=== PATIENT | male | born 1970 | race Caucasian/White ===

== ENCOUNTER 2023-08-01 11:11 | Inpatient (IN) | payer OTHER ==
[2023-08-01] MEDS ORDERED: BISMUTH SUBSALICYLATE 262 MG/15 ML BTL PO PRN (12:35)
[2023-08-01] MEDS ORDERED: BENZOCAINE/MENTHOL (CHLORASEPTIC ) LOZENGE MM PRN (12:35)
[2023-08-01] MEDS ORDERED: ACETAMINOPHEN 325 MG TABLET (FP) PO PRN (12:35)
[2023-08-01] MEDS ORDERED: LOPERAMIDE HCL 2 MG CAPSULE PO PRN (12:35)
[2023-08-01] MEDS ORDERED: MAG HYDROX/AL HYDROX/SIMETH 30 ML UNIT-DOSE CUP PO PRN (12:35)
[2023-08-01] MEDS ORDERED: BENZONATATE 200 MG CAPSULE PO PRN (12:35)
[2023-08-01] MEDS ORDERED: LORazepam 1 MG TABLET PO PRN (12:35)
[2023-08-01] MEDS ORDERED: ONDANSETRON *ODT* 4 MG TABLET SL PRN (12:35)
[2023-08-01] MEDS ORDERED: IBUPROFEN 400 MG TABLET (FP) PO PRN (12:35)
[2023-08-01] MEDS ORDERED: guaiFENesin 600 MG TABLET.ER (FP) PO PRN (12:35)
[2023-08-01] MEDS ORDERED: NALOXONE HCL (KLOXXADO) 8 MG SPRAY NS PRN (12:35)
[2023-08-01] MEDS ORDERED: DICYCLOMINE HCL 10 MG CAPSULE PO PRN (12:35)
[2023-08-01] MEDS ORDERED: NALOXONE HCL 0.4 MG/ML VIAL IM PRN (12:35)
[2023-08-01] MEDS ORDERED: POLYETHYLENE GLYCOL (HEALTHYLAX) 3350 17 GM PACKET PO PRN (12:35)
[2023-08-01] MEDS ORDERED: MAGNESIUM HYDROX 2400MG/30ML ORAL SUSPENSION 30 ML CUP PO PRN (12:35)
[2023-08-01] MEDS ORDERED: LORazepam 2 MG TABLET ONE (14:18)
[2023-08-01] MEDS: LORazepam 2 MG TABLET PO ONE (14:20)
[2023-08-01] MEDS ORDERED: ALBUTEROL SO4 0.083% IH SOL 2.5 MG/3 ML VIAL.NEB. NEB PRN (14:43)
[2023-08-01] MEDS: METHOCARBAMOL 500 MG TABLET PO PRN (15:21)
[2023-08-01] MEDS: HYDROCHLOROTHIAZIDE 25 MG TABLET (FP) PO SCH (15:21)
[2023-08-01] MEDS: hydrOXYzine PAMOATE 25 MG CAPSULE (FP) PO PRN (15:22)
[2023-08-01] MEDS: PRENATAL VITAMINS W/ FOLIC ACID TABLET (FP) PO SCH (15:27)
[2023-08-01] MEDS: metFORMIN HCL 500 MG TABLET (FP) PO SCH (16:32)
[2023-08-01] MEDS ORDERED: INSULIN (NOVOLOG) ASPART 100 UNITS/ML 10ML VIAL ONE ×2 (17:30→21:50)
[2023-08-01] MEDS: LORazepam 2 MG TABLET PO SCH (17:32)
[2023-08-01] MEDS: INSULIN ASPART SLIDING SCALE (NOVOLOG) 1 VIAL SQ SCH (17:33)
[2023-08-01] MEDS: IBUPROFEN 600 MG TABLET (FP) PO PRN (17:33)
[2023-08-01] MEDS: ALBUTEROL SO4 0.083% IH SOL 2.5 MG/3 ML VIAL.NEB. NEB PRN (17:36)
[2023-08-01] MEDS: MELATONIN 5 MG TABLETS PO SCH (22:47)
[2023-08-01] MEDS: ALBUTEROL SO4 HFA INHALER IH PRN (22:47)
[2023-08-01] MEDS: THIAMINE HCL 100 MG TABLET (FP) PO SCH (22:47)
[2023-08-01] MEDS: MOMETASONE FUROATE 220 MCG/IH INHALER IH SCH (22:48)
[2023-08-01] MEDS: traZODone HCL 100 MG TABLET (FP) PO SCH (22:49)
[2023-08-02] MEDS: PATIENT'S OWN MEDICATION (NON-FORMULARY) (Meloxicam 15 MG Tablet) PO SCH (10:00)
[2023-08-02 10:33] LABS: HEMATOCRIT 46.6 % (35.4-49); HEMOGLOBIN 15.8 GM/dL (11.7-16.9); MCH 31.7 pg (25.7-33.7); MEAN CELL VOLUME 93.3 fl (80-96); MEAN PLT VOLUME 8.8 fl (7.5-11.1); PLATELET COUNT 217 10^3/uL (134-434); RBC 4.99 M/mm3 (4.00-5.60); RDW 14.5 % (11.9-15.9); WHITE BLOOD COUNT 11.5 K/mm3 (4.0-10.0)
[2023-08-02 10:54] LABS: CHLORIDE 94 mmol/L (98-107); POTASSIUM 4.4 mmol/L (3.5-5.1); SODIUM 132 mmol/L (136-145)
[2023-08-02] MEDS: LIRAGLUTIDE 0.6 MG/0.1 ML PEN.INJCTR SQ SCH (10:55)
[2023-08-02] MEDS: LORATADINE 10 MG TABLET PO SCH (10:58)
[2023-08-02] MEDS: PANTOPRAZOLE 40 MG TABLET PO SCH (10:58)
[2023-08-02] MEDS: LISINOPRIL 20 MG TABLET PO SCH (10:59)
[2023-08-02] MEDS: DULoxetine HCL 60 MG CAPSULE.DR PO SCH (11:00)
[2023-08-02 11:05] LABS: CALCIUM 9.8 mg/dL (8.5-10.1)
[2023-08-02 11:06] LABS: ALBUMIN 3.2 g/dl (3.4-5.0); ANION GAP 11 mmol/L (4-13); BLOOD UREA NITROGEN 18.7 mg/dL (7-18); CO2 28 mmol/L (21-32)
[2023-08-02] MEDS: FLU VACCINE (FLULAVAL) PF 60 MCG/0.5 ML SYRINGE 2023-2024 IM ONE (11:06)
[2023-08-02 11:09] LABS: CREATININE 1.1 mg/dL (0.55-1.3); SGOT/AST 18 U/L (15-37); SGPT/ALT 40 U/L (13-61)
[2023-08-02 11:10] LABS: BILIRUBIN,TOTAL 0.3 mg/dL (0.2-1); TOT PROT 7.3 g/dl (6.4-8.2)
[2023-08-02 11:12] LABS: ALK PHOS 83 U/L (45-117); GLUCOSE,RANDOM 430 mg/dL (74-106)
[2023-08-03] MEDS: LORazepam 1 MG TABLET PO SCH (05:32)
[2023-08-03] MEDS ORDERED: INSULIN (NOVOLOG) ASPART 100 UNITS/ML 10ML VIAL ONE ×4 (05:32→22:28)
[2023-08-03] MEDS: INSULIN ASPART SLIDING SCALE (NOVOLOG) 1 VIAL SQ SCH (16:43)
[2023-08-04] MEDS ORDERED: LORazepam 0.5 MG TABLET PO PRN
[2023-08-04] MEDS: LORazepam 0.5 MG TABLET PO SCH (05:58)
[2023-08-04] MEDS ORDERED: INSULIN (NOVOLOG) ASPART 100 UNITS/ML 10ML VIAL ONE ×2 (16:31→22:57)
[2023-08-04] MEDS: LACTULOSE 20 GM/30 ML UDC (FOR ORAL USE ONLY) PO SCH (17:23)
[2023-08-05] MEDS ORDERED: INSULIN (NOVOLOG) ASPART 100 UNITS/ML 10ML VIAL ONE (05:33)
[2023-08-05] MEDS: LORazepam 0.5 MG TABLET PO ONE (05:47)
[2023-08-05 09:42] VITALS: BP 132/78; PULSE 88; RESP 20; TEMP 97.6
== END 2023-08-05 11:00 | disposition home or self-care (01) | DRG 775 ==
LOC: YASAS 11:11 → Y6N 13:15
PROVIDERS: ADMIT Allergy & Immunology; ATTEND Surgery
PROC: HZ2ZZZZ Detoxification Services for Substance Abuse Treatment (ICD-10-PCS; principal; 2023-08-01)
DX: F10.230 Alcohol dependence with withdrawal, uncomplicated (principal); F41.9 Anxiety disorder, unspecified; F32.A Depression, unspecified; G47.00 Insomnia, unspecified; I10 Essential (primary) hypertension; J45.909 Unspecified asthma, uncomplicated; E11.9 Type 2 diabetes mellitus without complications; Z79.84 Long term (current) use of oral hypoglycemic drugs; Z79.85 Long-term (current) use of injectable non-insulin antidiabetic drugs; M54.50 Low back pain, unspecified; G89.29 Other chronic pain; R74.01 Elevation of levels of liver transaminase levels; Z86.59 Personal history of other mental and behavioral disorders
CPT/HCPCS: 36415; 80053; 80305; 80307; 82140; 82962; 83036; 85027; 86780; 87635; 87811; 90686; 93005; 93010; 94640; G0008